=== PATIENT | male | born 1940 | race Hispanic/Latino ===

== ENCOUNTER 2019-03-28 21:37 | Inpatient (IN) | payer OTHER, MEDICARE ==
[~2019-03-28] VITALS: Ht 177.8 cm; Wt 67.1 kg
[2019-03-28 22:06] LABS: BASOPHILS % (AUTO) 0.4 % (0.0-5.0); HEMATOCRIT 30.9 % (42-54); LYMPHOCYTES % (AUTO) 6.4 % (21.0-51.0); MEAN CORPUSCULAR HEMOGLOBIN 31.8 pg (27.0-33.0); MEAN CORPUSCULAR HGB CONC 34.1 g/dL (32.0-36.0); MEAN CORPUSCULAR VOLUME 93.3 fL (79-99); MONOCYTES % (AUTO) 2.5 % (3.0-13.0); NEUTROPHILS % (AUTO) 90.7 % (40.0-77.0); PLATELET COUNT (AUTO) 643 K/uL (130-400); RED BLOOD CELL COUNT(AUTO) 3.31 MIL/uL (4.50-6.20); RED CELL DISTRIBUTION WIDTH 12.9 % (11.0-15.5); WHITE BLOOD COUNT (AUTO) 19.1 K/uL (4.8-10.8)
[2019-03-28 22:17] LABS: AMYLASE 29 U/L (25-115); LIPASE 69 U/L (114-286)
[2019-03-28 22:19] LABS: CREATININE 1.1 mg/dL (0.5-1.5); INR 0.98 (0.85-1.15); POTASSIUM 4.1 mmol/L (3.5-5.1); PROTHROMBIN TIME 10.3 SEC (9.6-11.6)
[2019-03-28 22:26] LABS: AMMONIA < 10 umol/L (11-32)
[2019-03-28 22:33] LABS: ALBUMIN 2.5 g/dL (3.5-5.0); BILIRUBIN,TOTAL 0.8 mg/dL (0.2-1.0)
[2019-03-28] MEDS ORDERED: SODIUM CHLORIDE 0.9% 1000ML 1,000 ML IV ONE ×2 (22:51→23:43)
[2019-03-28] MEDS ORDERED: ZOSYN 3.375GM+NS 50ML 50 ML IV ONE (22:51)
[2019-03-28] MEDS: SODIUM CHLORIDE 0.9% 1000ML 1,000 ML IV SCH (23:01)
[2019-03-28] MEDS ORDERED: LACTULOSE 20 GM/30 ML UDCUP PO PRN (23:15)
[2019-03-28] MEDS ORDERED: ACETAMINOPHEN 325 MG TAB PO PRN (23:15)
[2019-03-28] MEDS ORDERED: VANCOMYCIN 1GM+NS 250ML 250 ML IV SCH (23:15)
[2019-03-28 23:21] LABS: BILIRUBIN,URINE Small (NEGATIVE); GLUCOSE, URINE (UA) Negative (NEGATIVE); KETONES,URINE Negative (NEGATIVE); LEUKOCYTE ESTERASE ,URINE Negative (NEGATIVE); NITRATE,URINE Negative (NEGATIVE); OCCULT BLOOD,URINE Nonhemolyzed Trace (NEGATIVE); PROTEIN,URINE POS 1+ mg/dL (NEGATIVE)
[2019-03-28 23:28] LABS: APPEARANCE,URINE CLEAR (CLEAR); COLOR,URINE YELLOW (YELLOW)
[2019-03-28] MEDS ORDERED: VANCOMYCIN PROTOCOL PER PHARMACY IV SCH (23:30)
[2019-03-28] MEDS ORDERED: PHARMACY COMMUNICATION MISC SCH (23:30)
[2019-03-28 23:36] LABS: BACTERIA,URINE Few /HPF (None Seen)
[2019-03-28] MEDS ORDERED: VANCOMYCIN 1GM+NS 250ML 250 ML IV ONE (23:42)
[2019-03-28] MEDS ORDERED: SODIUM CHLORIDE 3% FOR INHALATION 4 ML/AMP VIAL.NEB IH ONE (23:50)
[2019-03-29] MEDS: IPRATROPIUM/ALBUTEROL SULFATE 3 ML SOLUTION IH SCH ×6 (02:04→21:55)
[2019-03-29 03:00] VITALS: BP 141/72
[2019-03-29] MEDS ORDERED: METO25TA3 PO (03:09)
[2019-03-29] MEDS ORDERED: ENOX80DI8 SQ (03:09)
[2019-03-29] MEDS ORDERED: ESOM40CA54 PO (03:09)
[2019-03-29] MEDS ORDERED: MULT1TAB61 PO (03:09)
[2019-03-29] MEDS ORDERED: PHEN100C9 PO (03:09)
[2019-03-29] MEDS ORDERED: HYDR-4064 PO (03:09)
[2019-03-29] MEDS ORDERED: PIOG15TA66 PO (03:09)
[2019-03-29] MEDS ORDERED: DUTA0.5C17 PO (03:09)
[2019-03-29] MEDS ORDERED: TAMS-1 PO (03:09)
--- NOTE | 2019-03-29 03:15 | NUR ---
LEANA LAGUNAS Addendum: 03/29/19 at 0451 by RICARDO JACK RN RN Amended: Links added.
[2019-03-29] MEDS ORDERED: SODIUM CHLORIDE 3% FOR INHALATION 4 ML/AMP VIAL.NEB IH ONE ×2 (04:51→10:10)
[2019-03-29] MEDS: INSULIN HUMULIN R 100 UNIT/ML 3ML SQ SCH ×4 (05:42→21:44)
[2019-03-29] MEDS: ZOSYN 3.375GM+NS 50ML 50 ML IV SCH ×3 (05:48→21:38)
[2019-03-29 06:35] LABS: BASOPHILS % (AUTO) 0.3 % (0.0-5.0); LYMPHOCYTES % (AUTO) 5.2 % (21.0-51.0); MEAN CORPUSCULAR HEMOGLOBIN 32.6 pg (27.0-33.0); MEAN CORPUSCULAR HGB CONC 34.6 g/dL (32.0-36.0); MEAN CORPUSCULAR VOLUME 94.3 fL (79-99); MONOCYTES % (AUTO) 3.5 % (3.0-13.0); PLATELET COUNT (AUTO) 513 K/uL (130-400); RED BLOOD CELL COUNT(AUTO) 2.65 MIL/uL (4.50-6.20); WHITE BLOOD COUNT (AUTO) 19.5 K/uL (4.8-10.8)
[2019-03-29 06:54] LABS: CREATININE 1.1 mg/dL (0.5-1.5); POTASSIUM 3.6 mmol/L (3.5-5.1)
[2019-03-29 08:00] VITALS: BP 109/55
[2019-03-29] MEDS: TOPROL PO SCH (09:00)
[2019-03-29] MEDS ORDERED: ENOXAPARIN SODIUM 40 MG/0.4 ML SYRINGE SQ SCH (09:00)
[2019-03-29] MEDS: **HM** DUTASTERIDE 0.5MG PO SCH (09:00)
[2019-03-29] MEDS: VANCOMYCIN 1GM+NS 250ML 250 ML IV SCH ×2 (09:44→21:46)
[2019-03-29] MEDS: FAMOTIDINE/PF 20 MG/2 ML VIAL IV SCH ×2 (09:44→21:38)
[2019-03-29] MEDS: PIOGLITAZONE HCL 15 MG TAB PO SCH (09:45)
[2019-03-29] MEDS: MULTIVITAMIN WITH MINERALS TABLET PO SCH (09:45)
[2019-03-29] MEDS: TAMSULOSIN HCL 0.4 MG CAP.ER.24H PO SCH ×2 (09:45→21:38)
[2019-03-29] MEDS: ENOXAPARIN SODIUM 80 MG/0.8 ML SQ SCH ×2 (09:47→21:40)
[2019-03-29 12:07] VITALS: BP 101/56
--- NOTE | 2019-03-29 14:30 | NUR ---
INITIAL MET W PT, SPOUSE AND DAUGHTER SHE AT BEDSIDE- PT VERY QUIET AND WEAK BUT AAOX3; LIVE WITH SPOUSE, THREE STEPS UP TO DOOR, STEP ARE GIVING HIM TROUBLE, IS USING A WALKER MORE AND MORE, HAS A SHOWER BENCH- NO PROVIDER SERVICES NO HH; WOULD BE WILLING TO GO TO A SNF IF NEEDED. DAUGHTER TO HELP WITH TRANSPORT HOME CM TO FOLLOW Addendum: 03/31/19 at 1940 by ERIN REINOSO RN CM Amended: Links added.
--- NOTE | 2019-03-29 14:50 | NUR ---
RD NOTIFICATION DX: PNEUMONIA. HX: HTN, DM, POSSIBLE LIVER CANCER, CAD, BPH. BMI 21.2; CLASSIFIED NORMAL. DIET: HEART HEALTHY. LBM: 03/26. SKIN INTACT, NO EDEMA. PT HAS POOR PO INTAKE AND DECREASED APPETITE PER FAMILY. USUAL BODY WEIGHT IS 176 PER FAMILY. PT HAS BEEN LOSING A LOT OF WEIGHT IN THE PAST 3 TO 4 MONTHS PER FAMILY. FAMILY STATED PT HAS BEEN EXPERIENCING NAUSEA AND VOMITING LATELY. NO DIFFICULTY CHEWING OR SWALLOWING. COOKS FOR PT AT HOME AND EATS SMALL MEALS USUALLY. PT LOVES SWEETS AND APPLE SAUCE. RD RECOMMENDS TO CONTINUE CURRENT DIET, ADD 60GMCCD TO DIET ORDER. OFFER GLUCERNA AT ALL MEALS (VANILLA). RD WILL CONTINUE TO MONITOR AND FOLLOW UP NEEDED. THANK YOU. Addendum: 03/29/19 at [address] Amended: Links added.
[2019-03-29 17:52] VITALS: BP 100/56
[2019-03-29 19:05] VITALS: BP 104/57
[2019-03-29] MEDS: PHENYTOIN SODIUM 100 MG ERCAP PO SCH (21:38)
[2019-03-29] MEDS: HYDROCODONE/ACETAMINOPHEN 7.5/325 MG TAB PO PRN (22:05)
[2019-03-30] VITALS (7 sets, daily range): BP systolic 92–118; BP diastolic 56–61
[2019-03-30] MEDS: IPRATROPIUM/ALBUTEROL SULFATE 3 ML SOLUTION IH SCH ×3 (01:17→09:56)
--- NOTE | 2019-03-30 01:46 | NUR ---
CRITICAL LAB RECIEVED A CRITICAL VALUE FOR THE VANCO TROUGH. HELD 0200 DOSE AND FAXED RESULTS TO PHARMACY. Addendum: 03/30/19 at 0346 by NAYA HELLER RN RN INCORRECT PATIENT.
[2019-03-30] MEDS: SODIUM CHLORIDE 0.9% 1000ML 1,000 ML IV SCH ×2 (05:01→14:11)
[2019-03-30] MEDS: ONDANSETRON HCL 4 MG/2 ML VIAL IV PRN (05:18)
[2019-03-30] MEDS: ZOSYN 3.375GM+NS 50ML 50 ML IV SCH ×3 (05:19→21:29)
[2019-03-30] MEDS: INSULIN HUMULIN R 100 UNIT/ML 3ML SQ SCH ×3 (05:45→21:45)
[2019-03-30 05:57] LABS: BASOPHILS % (AUTO) 0.8 % (0.0-5.0); EOSINOPHILS % (AUTO) 0.4 % (0.0-8.0); HEMATOCRIT 25.5 % (42-54); MEAN CORPUSCULAR HGB CONC 34.2 g/dL (32.0-36.0); MEAN CORPUSCULAR VOLUME 93.5 fL (79-99); MONOCYTES % (AUTO) 5.3 % (3.0-13.0); NEUTROPHILS % (AUTO) 84.5 % (40.0-77.0); PLATELET COUNT (AUTO) 605 K/uL (130-400); RED BLOOD CELL COUNT(AUTO) 2.72 MIL/uL (4.50-6.20); RED CELL DISTRIBUTION WIDTH 12.9 % (11.0-15.5); WHITE BLOOD COUNT (AUTO) 12.2 K/uL (4.8-10.8)
[2019-03-30 06:29] LABS: ALBUMIN 1.9 g/dL (3.5-5.0); BILIRUBIN,TOTAL 0.5 mg/dL (0.2-1.0); CREATININE 1.2 mg/dL (0.5-1.5); POTASSIUM 3.4 mmol/L (3.5-5.1); TOTAL PROTEIN, SERUM 6.4 g/dL (6.0-8.3)
[2019-03-30] MEDS: TOPROL PO SCH (09:00)
[2019-03-30] MEDS: **HM** DUTASTERIDE 0.5MG PO SCH (09:00)
[2019-03-30 09:40] LABS: CRP QUANTITATIVE 231.3 mg/L (0.00-9.0)
[2019-03-30] MEDS ORDERED: LIDOCAINE HCL-MPF 1% 2ML VIAL IV PRN ×2 (10:15)
[2019-03-30] MEDS ORDERED: IPRATROPIUM/ALBUTEROL SULFATE 3 ML SOLUTION IH PRN (10:15)
[2019-03-30] MEDS ORDERED: POTASSIUM CHLORIDE 20MEQ/100ML 100 ML IV PRN ×2 (10:15)
[2019-03-30] MEDS: POTASSIUM CHLORIDE 20 MEQ ERTAB PO PRN ×2 (11:07→11:11)
[2019-03-30] MEDS: MULTIVITAMIN WITH MINERALS TABLET PO SCH (11:08)
[2019-03-30] MEDS: TAMSULOSIN HCL 0.4 MG CAP.ER.24H PO SCH ×2 (11:08→21:29)
[2019-03-30] MEDS: FAMOTIDINE/PF 20 MG/2 ML VIAL IV SCH ×2 (11:09→21:29)
[2019-03-30] MEDS: PIOGLITAZONE HCL 15 MG TAB PO SCH (11:09)
[2019-03-30] MEDS: ENOXAPARIN SODIUM 80 MG/0.8 ML SQ SCH ×2 (11:10→21:30)
[2019-03-30] MEDS: PHENYTOIN SODIUM 100 MG ERCAP PO SCH (21:29)
[2019-03-31] MEDS ORDERED: DIPHENHYDRAMINE HCL 25 MG CAPSULE PO ONE (03:45)
--- NOTE | 2019-03-31 03:47 | NUR ---
PAGED HOSPITALIST ONCALL PATIENT AND SON REPORT THAT THE PATIENT IS "VERY RESTLESS" AND UNABLE TO SLEEP. NO PRN SLEEP AID IS AVAILABLE. VICTOR HUGO JONAS ORDERED A ONETIME DOSE OF BENADRYL. ORDER PLACED IN [employer].
[2019-03-31] MEDS ORDERED: DIPHENHYDRAMINE HCL 25 MG CAPSULE ONE (03:50)
[2019-03-31 04:00] VITALS: BP 113/61
[2019-03-31] MEDS: ZOSYN 3.375GM+NS 50ML 50 ML IV SCH ×2 (04:03→12:19)
[2019-03-31] MEDS: SODIUM CHLORIDE 0.9% 1000ML 1,000 ML IV SCH ×3 (05:26→21:01)
[2019-03-31 05:57] LABS: BASOPHILS % (AUTO) 0.3 % (0.0-5.0); EOSINOPHILS % (AUTO) 1.4 % (0.0-8.0); HEMATOCRIT 24.6 % (42-54); LYMPHOCYTES % (AUTO) 14.8 % (21.0-51.0); MEAN CORPUSCULAR HEMOGLOBIN 32.9 pg (27.0-33.0); MEAN CORPUSCULAR VOLUME 94.1 fL (79-99); MONOCYTES % (AUTO) 6.5 % (3.0-13.0); PLATELET COUNT (AUTO) 598 K/uL (130-400); RED BLOOD CELL COUNT(AUTO) 2.61 MIL/uL (4.50-6.20); RED CELL DISTRIBUTION WIDTH 13.1 % (11.0-15.5); WHITE BLOOD COUNT (AUTO) 9.2 K/uL (4.8-10.8)
[2019-03-31 06:11] LABS: INR 0.97 (0.85-1.15); PROTHROMBIN TIME 10.2 SEC (9.6-11.6)
[2019-03-31 06:14] LABS: CREATININE 1.1 mg/dL (0.5-1.5); POTASSIUM 4.1 mmol/L (3.5-5.1)
[2019-03-31] MEDS: INSULIN HUMULIN R 100 UNIT/ML 3ML SQ SCH ×4 (06:17→21:00)
[2019-03-31] MEDS: **HM** DUTASTERIDE 0.5MG PO SCH (07:39)
[2019-03-31] MEDS: TOPROL PO SCH (07:39)
[2019-03-31 08:00] VITALS: BP 108/61
[2019-03-31] MEDS: PIOGLITAZONE HCL 15 MG TAB PO SCH (09:15)
[2019-03-31] MEDS: ENOXAPARIN SODIUM 80 MG/0.8 ML SQ SCH ×2 (09:15→16:37)
[2019-03-31] MEDS: TAMSULOSIN HCL 0.4 MG CAP.ER.24H PO SCH ×2 (09:15→21:43)
[2019-03-31] MEDS: MULTIVITAMIN WITH MINERALS TABLET PO SCH (09:15)
[2019-03-31] MEDS: FAMOTIDINE/PF 20 MG/2 ML VIAL IV SCH ×2 (09:15→21:44)
[2019-03-31 11:00] VITALS: BP 110/61
[2019-03-31] MEDS: HYDROCODONE/ACETAMINOPHEN 7.5/325 MG TAB PO PRN ×2 (12:25→21:44)
[2019-03-31] MEDS: CEFTRIAXONE SODIUM 2 GM VIAL IVP SCH (14:29)
--- NOTE | 2019-03-31 15:32 | NUR ---
DISCHARGE PLAN TO SNF DISCUSSED DC PLAN Kell [place] PLAN FOR [facility] IF PT/FAMILY IN AGREEMENT. SPOKETO PATIENT BUT WANTS TO DEFER DISCUSSION TO HIS DAUGHTER. WILL CONTACT HER IN AM, PT FOR PROCEDURE TOMORROW AND POSSIBLE DC THE DAY FOLLOWING. Addendum: 03/31/19 at 1944 by ERIN REINOSO RN CM Amended: Links added.
[2019-03-31 16:00] VITALS: BP 95/67
[2019-03-31 20:00] VITALS: BP 108/61
[2019-03-31] MEDS: PHENYTOIN SODIUM 100 MG ERCAP PO SCH (21:43)
[2019-04-01] VITALS (24 sets, daily range): BP systolic 102–137; BP diastolic 46–84
[2019-04-01] MEDS: INSULIN HUMULIN R 100 UNIT/ML 3ML SQ SCH ×4 (06:24→21:21)
[2019-04-01] MEDS ORDERED: IOHEXOL-350 50ML VIAL IV ONE (06:29)
[2019-04-01] MEDS: SODIUM CHLORIDE 0.9% 1000ML 1,000 ML IV SCH ×3 (07:01→08:45)
[2019-04-01] MEDS: INDOMETHACIN 50 MG SUPP.RECT RC SCH ×2 (07:15→10:05)
[2019-04-01] MEDS ORDERED: PROPOFOL 1000 MG/100 ML 100 ML IV ONE (08:47)
[2019-04-01] MEDS ORDERED: SUCCINYLCHOLINE 200MG/10ML SYR ONE (08:47)
[2019-04-01] MEDS: TOPROL PO SCH (09:00)
[2019-04-01] MEDS: FAMOTIDINE/PF 20 MG/2 ML VIAL IV SCH ×2 (09:00→21:24)
[2019-04-01] MEDS: MULTIVITAMIN WITH MINERALS TABLET PO SCH (09:00)
[2019-04-01] MEDS: TAMSULOSIN HCL 0.4 MG CAP.ER.24H PO SCH ×2 (09:00→21:25)
[2019-04-01] MEDS: ENOXAPARIN SODIUM 80 MG/0.8 ML SQ SCH ×2 (09:00→21:25)
[2019-04-01] MEDS: PIOGLITAZONE HCL 15 MG TAB PO SCH (09:00)
[2019-04-01] MEDS: **HM** DUTASTERIDE 0.5MG PO SCH (09:00)
[2019-04-01] MEDS: ONDANSETRON HCL 4 MG/2 ML VIAL IV PRN (10:36)
[2019-04-01] MEDS ORDERED: METOCLOPRAMIDE 10 MG/2 ML VIAL ONE (10:49)
[2019-04-01 11:09] LABS: BASOPHILS % (AUTO) 0.4 % (0.0-5.0); EOSINOPHILS % (AUTO) 0.9 % (0.0-8.0); LYMPHOCYTES % (AUTO) 17.2 % (21.0-51.0); MEAN CORPUSCULAR HEMOGLOBIN 31.8 pg (27.0-33.0); MEAN CORPUSCULAR HGB CONC 33.8 g/dL (32.0-36.0); MEAN CORPUSCULAR VOLUME 94.1 fL (79-99); MONOCYTES % (AUTO) 4.2 % (3.0-13.0); NEUTROPHILS % (AUTO) 77.3 % (40.0-77.0); WHITE BLOOD COUNT (AUTO) 9.8 K/uL (4.8-10.8)
--- NOTE | 2019-04-01 11:15 | NUR ---
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
[2019-04-01 11:22] LABS: ALBUMIN 2.4 g/dL (3.5-5.0); BILIRUBIN,TOTAL 1.1 mg/dL (0.2-1.0); CREATININE 1.1 mg/dL (0.5-1.5); MAGNESIUM 1.5 mg/dL (1.80-2.40); PHOSPHORUS 3.3 mg/dL (2.5-4.9); POTASSIUM 4.3 mmol/L (3.5-5.1); TOTAL PROTEIN, SERUM 7.3 g/dL (6.0-8.3)
[2019-04-01 11:47] LABS: PLATELET COUNT (AUTO) 769 K/uL (130-400)
[2019-04-01] MEDS: CEFTRIAXONE SODIUM 2 GM VIAL IVP SCH (14:59)
--- NOTE | 2019-04-01 15:51 | NUR ---
RD NOTIFICATION/ FOLLOW UP DX: PNEUMONIA. DIET: NPO. S/P ENDOSCOPY PER FAMILY. PO CONTINUES TO BE POOR AND HAS POOR APPETITE. PT DRINKING GLUCERNA SUPPLEMENT. PT IS TOLERATING DIET AND SUPPLEMENT. PT LIKES SOUP. NO NAUSEA, VOMITING OR DIARRHEA [id number]. LBM: 04/01. SKIN: 1+PITTING EDEMA, SKIN INTACT. RD RECOMMENDS TO ADVANCE DIET TOLERATED WHEN MEDICALLY FEASIBLE. PROVIDE 30MLS PROMOD TID. CONTINUE TO OFFER GLUCERNA AT ALL MEALS. RD WILL CONTINUE TO MONITOR AND FOLLOW UP NEEDED. THANK YOU. Addendum: 04/01/19 at [address] RD Amended: Links added.
--- NOTE | 2019-04-01 15:55 | NUR ---
REFERRAL TO [facility] CALL TO NAT QUEVEDO AND RECD THE RECOMMENDATION TO SEND PATIENT TO [facility]. DR. JOHNS ROUNDS THERE ZANE/CONSENT OBTAINED FROM PTS SPOUSE FAMILY AT BEDSIDE WITH MULTIPLE FAMILY MEMBERS PT ORDER PLACED. YOBANI HERE TO SEE PT WILL SEND REFERRAL PKT WHEN NOTES PUT IN
[2019-04-01] MEDS ORDERED: BENZOCAINE/MENTH/CETYLPYRD CL 1 EACH LOZENGE MM PRN (17:15)
[2019-04-01] MEDS ORDERED: HYDROCORTISONE 25 MG SUPPOSITORY PR PRN (18:30)
[2019-04-01] MEDS: MORPHINE SULFATE 2 MG/ML 1ML SYG IV PRN (19:58)
[2019-04-01] MEDS: PHENYTOIN SODIUM 100 MG ERCAP PO SCH (21:24)
[2019-04-01] MEDS ORDERED: MAGNESIUM 2GM PREMIX 50ML 50 ML IV ONE (22:54)
[2019-04-01] MEDS: MAGNESIUM 2GM PREMIX 50ML 50 ML IV PRN (22:56)
[2019-04-02] VITALS (26 sets, daily range): BP systolic 107–144; BP diastolic 19–71
[2019-04-02 04:58] LABS: BASOPHILS % (AUTO) 0.5 % (0.0-5.0); EOSINOPHILS % (AUTO) 0.8 % (0.0-8.0); HEMATOCRIT 27.6 % (42-54); LYMPHOCYTES % (AUTO) 11.2 % (21.0-51.0); MEAN CORPUSCULAR HEMOGLOBIN 32.3 pg (27.0-33.0); MEAN CORPUSCULAR HGB CONC 34.4 g/dL (32.0-36.0); MEAN CORPUSCULAR VOLUME 93.9 fL (79-99); NEUTROPHILS % (AUTO) 81.5 % (40.0-77.0); PLATELET COUNT (AUTO) 679 K/uL (130-400); RED BLOOD CELL COUNT(AUTO) 2.94 MIL/uL (4.50-6.20); RED CELL DISTRIBUTION WIDTH 13.1 % (11.0-15.5); WHITE BLOOD COUNT (AUTO) 9.2 K/uL (4.8-10.8)
[2019-04-02 05:25] LABS: ALBUMIN 2.1 g/dL (3.5-5.0); BILIRUBIN,TOTAL 1.8 mg/dL (0.2-1.0); CREATININE 1.1 mg/dL (0.5-1.5); MAGNESIUM 2.2 mg/dL (1.80-2.40); POTASSIUM 3.9 mmol/L (3.5-5.1); TOTAL PROTEIN, SERUM 6.5 g/dL (6.0-8.3)
[2019-04-02] MEDS: INSULIN HUMULIN R 100 UNIT/ML 3ML SQ SCH ×4 (07:05→21:52)
[2019-04-02] MEDS: TAMSULOSIN HCL 0.4 MG CAP.ER.24H PO SCH ×2 (09:00→21:40)
[2019-04-02] MEDS: TOPROL PO SCH (09:00)
[2019-04-02] MEDS: **HM** DUTASTERIDE 0.5MG PO SCH (09:00)
[2019-04-02] MEDS: MULTIVITAMIN WITH MINERALS TABLET PO SCH (09:00)
[2019-04-02] MEDS: PIOGLITAZONE HCL 15 MG TAB PO SCH (09:00)
[2019-04-02] MEDS: FAMOTIDINE/PF 20 MG/2 ML VIAL IV SCH ×2 (09:05→21:40)
[2019-04-02] MEDS ORDERED: IODIXANOL 320 MG/ML 100 ML VIAL ONE (09:17)
[2019-04-02] MEDS ORDERED: SODIUM BICARB 50MEQ 50ML VIAL ONE (09:17)
[2019-04-02] MEDS ORDERED: LIDOCAINE HCL 2% 20ML ONE (09:18)
[2019-04-02] MEDS ORDERED: ROCURONIUM BROMIDE 10MG/1ML 5ML VL ONE (11:23)
[2019-04-02] MEDS ORDERED: GLYCOPYRROLATE 1 MG/5 ML SYRINGE ONE (11:24)
[2019-04-02] MEDS ORDERED: NEOSTIGMINE 5MG/5ML SYR IV ONE (11:24)
[2019-04-02] MEDS ORDERED: FENTANYL CITRATE PF 50 MCG/1 ML 2ML VIAL ONE (11:43)
--- NOTE | 2019-04-02 12:05 | NUR ---
PROCEDURE REPORT RECEIVED FROM DESIREE SARAH (IR). PATIENT S/P PARACENTESIS WITH REMOVAL OF 1.3L. PTC DRAIN PLACED TO RUQ, DRAIN SECURED BY SUTURES. PATIENT WILL BE IN RECOVERY BEFORE RETURNED TO FLOOR.
--- NOTE | 2019-04-02 13:03 | NUR ---
REPORT RECEIVED FROM PASTORA RN (PACU). PATIENT S/P 8FR PTC DRAIN TO RUQ, DRESSING DRY AND INTACT. PATIENT STABLE AT THIS TIME. VS: 97.4 - 87 - 16 - 122/58, 99% RA.
[2019-04-02] MEDS: CEFTRIAXONE SODIUM 2 GM VIAL IVP SCH (14:57)
[2019-04-02] MEDS: ACETAMINOPHEN 325 MG TAB PO PRN (16:29)
[2019-04-02] MEDS: SODIUM CHLORIDE 0.9% 1000ML 1,000 ML IV SCH ×2 (21:40→23:01)
[2019-04-02] MEDS: PHENYTOIN SODIUM 100 MG ERCAP PO SCH (21:40)
[2019-04-03 00:02] VITALS: BP 124/49
[2019-04-03 04:05] VITALS: BP 146/62
[2019-04-03 06:27] LABS: BASOPHILS % (AUTO) 0.4 % (0.0-5.0); LYMPHOCYTES % (AUTO) 4.9 % (21.0-51.0); MEAN CORPUSCULAR HEMOGLOBIN 32.2 pg (27.0-33.0); MEAN CORPUSCULAR HGB CONC 34.5 g/dL (32.0-36.0); MEAN CORPUSCULAR VOLUME 93.1 fL (79-99); MONOCYTES % (AUTO) 3.2 % (3.0-13.0); NEUTROPHILS % (AUTO) 91.5 % (40.0-77.0); PLATELET COUNT (AUTO) 667 K/uL (130-400); RED BLOOD CELL COUNT(AUTO) 2.79 MIL/uL (4.50-6.20); RED CELL DISTRIBUTION WIDTH 13.2 % (11.0-15.5); WHITE BLOOD COUNT (AUTO) 21.9 K/uL (4.8-10.8)
[2019-04-03 06:56] LABS: ALBUMIN 1.9 g/dL (3.5-5.0); BILIRUBIN,TOTAL 1.2 mg/dL (0.2-1.0); CREATININE 1.1 mg/dL (0.5-1.5); MAGNESIUM 1.6 mg/dL (1.80-2.40); POTASSIUM 3.9 mmol/L (3.5-5.1); TOTAL PROTEIN, SERUM 6.4 g/dL (6.0-8.3)
[2019-04-03] MEDS: INSULIN HUMULIN R 100 UNIT/ML 3ML SQ SCH ×4 (07:04→20:09)
[2019-04-03 08:00] VITALS: BP 122/63
[2019-04-03] MEDS: **HM** DUTASTERIDE 0.5MG PO SCH (09:00)
[2019-04-03] MEDS: SODIUM CHLORIDE 0.9% 1000ML 1,000 ML IV SCH ×2 (09:01→09:24)
[2019-04-03] MEDS: TAMSULOSIN HCL 0.4 MG CAP.ER.24H PO SCH ×2 (09:14→20:13)
[2019-04-03] MEDS: FAMOTIDINE/PF 20 MG/2 ML VIAL IV SCH ×2 (09:14→20:13)
[2019-04-03] MEDS: PIOGLITAZONE HCL 15 MG TAB PO SCH (09:14)
[2019-04-03] MEDS: MULTIVITAMIN WITH MINERALS TABLET PO SCH (09:14)
[2019-04-03] MEDS: TOPROL PO SCH (09:16)
[2019-04-03] MEDS: MORPHINE SULFATE 2 MG/ML 1ML SYG IV PRN ×2 (09:25→20:22)
[2019-04-03] MEDS: ZOSYN 3.375GM+NS 50ML 50 ML IV SCH ×2 (11:36→18:06)
[2019-04-03] MEDS: ACETAMINOPHEN 325 MG TAB PO PRN (11:38)
[2019-04-03 12:00] VITALS: BP 118/57
[2019-04-03 16:00] VITALS: BP 137/67
[2019-04-03] MEDS: MAGNESIUM 2GM PREMIX 50ML 50 ML IV PRN (18:39)
[2019-04-03 20:00] VITALS: BP 145/67
[2019-04-03] MEDS: PHENYTOIN SODIUM 100 MG ERCAP PO SCH (20:13)
[2019-04-04] VITALS: BP 122/62
[2019-04-04] MEDS: ZOSYN 3.375GM+NS 50ML 50 ML IV SCH ×3 (02:26→17:43)
[2019-04-04 03:20] VITALS: BP 115/59
[2019-04-04] MEDS: SODIUM CHLORIDE 0.9% 1000ML 1,000 ML IV SCH ×2 (04:39→15:01)
[2019-04-04 05:41] LABS: HEMATOCRIT 24.7 % (42-54); MEAN CORPUSCULAR HEMOGLOBIN 31.3 pg (27.0-33.0); MEAN CORPUSCULAR HGB CONC 33.7 g/dL (32.0-36.0); PLATELET COUNT (AUTO) 593 K/uL (130-400); RED BLOOD CELL COUNT(AUTO) 2.66 MIL/uL (4.50-6.20); RED CELL DISTRIBUTION WIDTH 13.4 % (11.0-15.5); WHITE BLOOD COUNT (AUTO) 21.7 K/uL (4.8-10.8)
[2019-04-04 05:49] LABS: BAND NEUTROPHILS % (MANUAL) 1 % (0-2); EOSINOPHILS % (MANUAL) 1 % (1-6); LYMPHOCYTES % (MANUAL) 9 % (22-44); MAN.DIFF COMMENT-IMPRESSION MANUAL DIFFERENTIAL; MONOCYTES % (MANUAL) 6 % (2-9); PLATELET MORPHOLOGY COMMENT INCREASED; SEGMENTED NEUTROPHILS % 83 % (40-70)
[2019-04-04 05:54] LABS: MAGNESIUM 1.9 mg/dL (1.80-2.40); POTASSIUM 3.3 mmol/L (3.5-5.1)
[2019-04-04] MEDS: INSULIN HUMULIN R 100 UNIT/ML 3ML SQ SCH ×4 (06:05→21:18)
[2019-04-04] MEDS: POTASSIUM CHLORIDE 20 MEQ ERTAB PO PRN (06:06)
[2019-04-04 07:58] VITALS: BP 105/57
[2019-04-04] MEDS: **HM** DUTASTERIDE 0.5MG PO SCH (08:12)
[2019-04-04] MEDS: TAMSULOSIN HCL 0.4 MG CAP.ER.24H PO SCH ×2 (08:12→21:12)
[2019-04-04] MEDS: POTASSIUM CHLORIDE 10% ELIXIR 20 MEQ/15 ML UDCUP PO PRN ×3 (08:12→12:56)
[2019-04-04] MEDS: MULTIVITAMIN WITH MINERALS TABLET PO SCH (08:12)
[2019-04-04] MEDS: FAMOTIDINE/PF 20 MG/2 ML VIAL IV SCH ×2 (08:12→21:12)
[2019-04-04] MEDS: TOPROL PO SCH (08:12)
[2019-04-04] MEDS: PIOGLITAZONE HCL 15 MG TAB PO SCH (08:12)
[2019-04-04] MEDS ORDERED: VANCOMYCIN PROTOCOL PER PHARMACY IV SCH (08:45)
[2019-04-04] MEDS: PHARMACY COMMUNICATION MISC SCH ×2 (10:45→12:27)
[2019-04-04] MEDS ORDERED: COMPOUND IV REFRIGERATED 1 EACH IVSOLN MISC PRN (11:45)
[2019-04-04 12:00] VITALS: BP 112/66
[2019-04-04] MEDS: MORPHINE SULFATE 2 MG/ML 1ML SYG IV PRN (13:01)
[2019-04-04] MEDS ORDERED: VANCOMYCIN 1.5 GM in SODIUM CHLORIDE 0.9% 250 ML IV ONE (15:00)
[2019-04-04 16:03] VITALS: BP 96/57
[2019-04-04] MEDS: ONDANSETRON HCL 4 MG/2 ML VIAL IV PRN (17:43)
[2019-04-04 20:00] VITALS: BP 116/49
[2019-04-04] MEDS: PHENYTOIN SODIUM 100 MG ERCAP PO SCH (21:12)
--- NOTE | 2019-04-04 21:20 | NUR ---
MEDS SHIFT ASSESSMENT DONE, PLEASE REFER TO CHART. DUE MEDS ADMINISTERED, TOLERATED WELL. KEPT RESTED AND COMFORTABLE WITH HOB ELEVATED. CALL LIGHT WITHIN REACH. FAMILY AT BEDSIDE. WILL MONITOR PT. Addendum: 04/05/19 at 0411 by CRISTY NICE RN RN Amended: Links added.
[2019-04-05] VITALS: BP 94/46
[2019-04-05] MEDS: SODIUM CHLORIDE 0.9% 1000ML 1,000 ML IV SCH ×3 (01:01→11:01)
[2019-04-05] MEDS: ZOSYN 3.375GM+NS 50ML 50 ML IV SCH ×2 (02:20→11:05)
--- NOTE | 2019-04-05 02:20 | NUR ---
MEDS PCP IN AND CHANGED PT'S DIAPER, RE-POSITIONED COMFORTABLY IN BED WITH HOB ELEVATED. PT COMPLAINTS OF HEARTBURN AND GENERALIZED ACHING. NEW IV BAG WITH NEW IV TUBINGS HUNG. IV ANTIBIOTICS INFUSED. VICODIN PO ADMINISTERED FOR PAINS. WILL RE-ASSESS PT.
[2019-04-05] MEDS: HYDROCODONE/ACETAMINOPHEN 7.5/325 MG TAB PO PRN (02:41)
[2019-04-05 04:00] VITALS: BP 117/67
[2019-04-05 04:58] LABS: POTASSIUM 3.5 mmol/L (3.5-5.1)
--- NOTE | 2019-04-05 05:36 | NUR ---
[employer] PT COMPLAINTS OF FEELING ANXIOUS. PAGED [employer] S[employer] OFFICER CHECK WRITER FOR HOSPITALIST, NINOSKA, REFERRED PT'S COMPLAINTS. NEW MED ORDER GIVEN. MEDICATED PT AND RE-POSITIONED COMFORTABLY IN BED. FOR MORE CARE AND MANAGEMENT.
[2019-04-05] MEDS ORDERED: ALPRAZOLAM 0.25 MG TABLET ONE (05:42)
[2019-04-05] MEDS: POTASSIUM CHLORIDE 20 MEQ ERTAB PO PRN (05:43)
[2019-04-05] MEDS ORDERED: ALPRAZOLAM 0.25 MG TABLET PO ONE (05:45)
[2019-04-05] MEDS ORDERED: VANCOMYCIN 1GM+NS 250ML 250 ML IV SCH (06:00)
[2019-04-05] MEDS: INSULIN HUMULIN R 100 UNIT/ML 3ML SQ SCH (06:15)
[2019-04-05 08:00] VITALS: BP 119/68
[2019-04-05] MEDS: **HM** DUTASTERIDE 0.5MG PO SCH (09:00)
[2019-04-05] MEDS: TOPROL PO SCH (09:00)
--- NOTE | 2019-04-05 09:46 | NUR ---
CM Note: Kitt[place] Clark pending ins auth Spoke to Leona ruelas/Antione Clark. Pt pending ins auth at this time. Primary nurse aware. CM to cont to follow up.
[2019-04-05] MEDS: MULTIVITAMIN WITH MINERALS TABLET PO SCH (10:25)
[2019-04-05] MEDS: FAMOTIDINE/PF 20 MG/2 ML VIAL IV SCH (10:25)
[2019-04-05] MEDS: TAMSULOSIN HCL 0.4 MG CAP.ER.24H PO SCH (10:25)
[2019-04-05] MEDS: PIOGLITAZONE HCL 15 MG TAB PO SCH (10:25)
[2019-04-05] MEDS: ONDANSETRON HCL 4 MG/2 ML VIAL IV PRN (11:05)
[2019-04-05] MEDS ORDERED: LEVO500T2 PO (11:14)
[2019-04-05 11:30] LABS: BASOPHILS % (AUTO) 0.4 % (0.0-5.0); EOSINOPHILS % (AUTO) 0.6 % (0.0-8.0); LYMPHOCYTES % (AUTO) 5.5 % (21.0-51.0); MEAN CORPUSCULAR HEMOGLOBIN 32.1 pg (27.0-33.0); MEAN CORPUSCULAR HGB CONC 33.9 g/dL (32.0-36.0); MEAN CORPUSCULAR VOLUME 94.8 fL (79-99); MONOCYTES % (AUTO) 5.2 % (3.0-13.0); NEUTROPHILS % (AUTO) 88.3 % (40.0-77.0); RED BLOOD CELL COUNT(AUTO) 2.96 MIL/uL (4.50-6.20); RED CELL DISTRIBUTION WIDTH 13.5 % (11.0-15.5); WHITE BLOOD COUNT (AUTO) 19.9 K/uL (4.8-10.8)
[2019-04-05 11:35] LABS: PLATELET COUNT (AUTO) 706 K/uL (130-400)
[2019-04-05 11:46] VITALS: BP 110/52
[2019-04-05 11:46] LABS: ALBUMIN 1.8 g/dL (3.5-5.0); BILIRUBIN,TOTAL 1.5 mg/dL (0.2-1.0); CREATININE 1.3 mg/dL (0.5-1.5); TOTAL PROTEIN, SERUM 6.6 g/dL (6.0-8.3)
--- NOTE | 2019-04-05 13:32 | NUR ---
CM Note: Tajik Clark Spoke to Leona ruelas/Antione Clark. Pt has ins auth and acceptance. EMS arranged and faxed if needed, primary nurse aware to call [facility] once pt ready to DC. Primary nurse aware. CM to cont to follow up.
[2019-04-05 16:00] VITALS: BP 122/73
--- NOTE | 2019-04-05 16:16 | NUR ---
REPORT Gave report to nurse Mahin Mallory LVN at [facility]. Called non-emergency ambulance. Pending for ambulance to arrive.
[2019-04-06] MEDS ORDERED: LEVOFLOXACIN 500 MG TABLET PO SCH (09:00)
== END 2019-04-05 18:00 | DRG 871 ==
LOC: EDH 21:37 → EDHIP 23:01 → 3BH 03-29 01:40
PROVIDERS: ADMIT Internal Medicine; ATTEND Internal Medicine
PROC: 0FPB8DZ Removal of Intraluminal Device from Hepatobiliary Duct, Via Natural or Artificial Opening Endoscopic (ICD-10-PCS; principal; 2019-04-01)
PROC: 0F798ZZ Dilation of Common Bile Duct, Via Natural or Artificial Opening Endoscopic (ICD-10-PCS; 2019-04-01)
PROC: BF101ZZ Fluoroscopy of Bile Ducts using Low Osmolar Contrast (ICD-10-PCS; 2019-04-01)
PROC: 0W9G30Z Drainage of Peritoneal Cavity with Drainage Device, Percutaneous Approach (ICD-10-PCS; 2019-04-01)
PROC: 0W9G3ZZ Drainage of Peritoneal Cavity, Percutaneous Approach (ICD-10-PCS; 2019-04-03)
DX: A41.51 Sepsis due to Escherichia coli [E. coli] (principal); J18.9 Pneumonia, unspecified organism; E43 Unspecified severe protein-calorie malnutrition; K83.1 Obstruction of bile duct; J98.11 Atelectasis; J90 Pleural effusion, not elsewhere classified; R18.8 Other ascites; K83.09 Other cholangitis; R64 Cachexia; N20.0 Calculus of kidney; B96.1 Klebsiella pneumoniae [K. pneumoniae] as the cause of diseases classified elsewhere; D64.9 Anemia, unspecified; E11.9 Type 2 diabetes mellitus without complications; I10 Essential (primary) hypertension; E78.5 Hyperlipidemia, unspecified; N40.0 Benign prostatic hyperplasia without lower urinary tract symptoms; E87.6 Hypokalemia; F03.90 Unspecified dementia, unspecified severity, without behavioral disturbance, psychotic disturbance, mood disturbance, and anxiety; I25.10 Atherosclerotic heart disease of native coronary artery without angina pectoris; K83.8 Other specified diseases of biliary tract; K59.00 Constipation, unspecified; Z68.21 Body mass index [BMI] 21.0-21.9, adult; Z74.01 Bed confinement status; Z95.1 Presence of aortocoronary bypass graft; Z86.718 Personal history of other venous thrombosis and embolism; Z86.711 Personal history of pulmonary embolism; Z46.59 Encounter for fitting and adjustment of other gastrointestinal appliance and device; Z83.3 Family history of diabetes mellitus
CPT/HCPCS: 36415; 43264; 43273; 43275; 47534; 49082; 49083; 71045; 74176; 74183; 74328; 74330; 75989; 76705; 80048; 80053; 80202; 81001; 82105; 82140; 82150; 82550; 82948; 83605; 83690; 83735; 84100; 84145; 84484; 85025; 85610; 85730; 86140; 86316; 87040; 87071; 87077; 87186; 87205; 87486; 87581; 87633; 87798; 87804; 93005; 94640; 94664; 97039; A4606; A6250; A9579; C1729; C1769; C1773; C1894; G0378; J0330; J0696; J1644; J1650; J1815; J2405; J2543; J2704; J2710; J2765; J3010; J3370; J3475; J3490; J7030; Q0163; Q9967